=== PATIENT | male | born 1965 | race Caucasian/White ===

== ENCOUNTER 2018-03-22 20:19 | Emergency (ER) | payer SELFPAY, OTHER ==
[2018-03-22] MEDS: IBUPROFEN 800 MG TAB PO (20:52)
[2018-03-22] MEDS: ACETAMINOPHEN 500 MG TAB PO (20:52)
== END 2018-03-22 21:22 | disposition home or self-care (01) ==
LOC: FTE 21:22
DX: J02.9 Acute pharyngitis, unspecified (principal)
CPT/HCPCS: 99283